=== PATIENT | male | born 1955 | race Caucasian/White ===

== ENCOUNTER 2020-01-17 17:10 | Inpatient (IN) ==
[2020-01-17] MEDS: Ipratropium/Albuterol Neb 3 ML IH SCH (21:34)
[2020-01-17] MEDS: Budesonide/Formoterol 160/4.5 1 PUFF INH IH SCH (21:35)
[2020-01-17] MEDS: hydrOXYzine pamoate 25 MG CAPSULE PO PRN (22:18)
[2020-01-17] MEDS: tiZANidine 4 MG TABLET PO PRN (22:19)
[2020-01-18] MEDS: *HR* OxyCODONE Immed Rel 5 MG TABLET PO PRN (00:37)
[2020-01-18] MEDS: Ipratropium/Albuterol Neb 3 ML IH SCH ×4 (04:00→21:22)
[2020-01-18 06:23] LABS: Basophils % 0.1 %; Eosinophils # 0.1 K/mcL (0.0-0.6); Eosinophils % 1.3 %; Hematocrit 34.1 % (37.5-50.1); Immature Granulocytes % 0.6 % (0-4); Lymphocytes % 13.8 %; Mean Corpuscular HGB Conc 32.3 g/dL (31.6-35.5); Mean Corpuscular Hemoglobin 24.9 pg (28.0-33.3); Mean Corpuscular Volume 77.1 fL (83.0-100.0); Mean Platelet Volume 8.7 fL (9.4-12.4); Monocytes # 0.7 K/mcL (0.0-1.3); Monocytes % 10.4 %; Neutrophils # 5.1 K/mcL (1.6-8.9); Platelet Count 233 K/mcL (140-400); Red Blood Count 4.42 M/mcL (4.19-5.50); Red Cell Distribution Width 11.6 % (11.5-14.5); Segmented Neutrophils % 73.8 %; White Blood Count 6.9 K/mcL (4.3-11.1)
[2020-01-18 06:40] LABS: BUN/Creatinine Ratio 34 (6-26); Blood Urea Nitrogen 14 mg/dL (8-23); Calcium 8.1 mg/dL (8.6-10.3); Carbon Dioxide 35 mEq/L (23-29); Chloride 95 mEq/L (98-107); Glucose 90 mg/dL (70-105); Osmolality,Calculated 280 (280-300); Potassium 3.6 mEq/L (3.5-5.1); Sodium 135 mEq/L (136-145); eGFR For African Americans > 60 (> 60); eGFR For Non-African Americans > 60 (> 60)
[2020-01-18] MEDS: Loratadine 10 MG TABLET PO SCH (08:27)
[2020-01-18] MEDS: Cefdinir 300 MG CAPSULE PO SCH ×2 (08:27→19:59)
[2020-01-18] MEDS: DilTIAZem CD (24hr) 120 MG CAP.ER.24H PO SCH (08:28)
[2020-01-18] MEDS: predniSONE 20 MG TABLET PO SCH (08:28)
[2020-01-18] MEDS: Aspirin 81 MG TAB.CHEW PO SCH (08:28)
[2020-01-18] MEDS: Azithromycin 250 MG TABLET PO SCH (08:28)
[2020-01-18] MEDS: Fluticasone Propionate Nasal 50 MCG/SPRAY BOTTLE NS SCH (08:38)
[2020-01-18] MEDS ORDERED: NON-FORMULARY MEDICATION 1 EACH EACH (Pantoprazole Sodium 40 MG) PO SCH (09:00)
[2020-01-18] MEDS: Budesonide/Formoterol 160/4.5 1 PUFF INH IH SCH ×2 (10:38→21:23)
[2020-01-18] MEDS: tiZANidine 4 MG TABLET PO PRN (19:59)
[2020-01-18] MEDS: hydrOXYzine pamoate 25 MG CAPSULE PO PRN (19:59)
[2020-01-19] MEDS: tiZANidine 4 MG TABLET PO PRN ×3 (02:24→20:03)
[2020-01-19] MEDS: hydrOXYzine pamoate 25 MG CAPSULE PO PRN ×3 (02:24→20:03)
[2020-01-19] MEDS: Ipratropium/Albuterol Neb 3 ML IH SCH ×4 (04:59→21:23)
[2020-01-19 08:17] LABS: Basophils % 0.1 %; Eosinophils # 0.2 K/mcL (0.0-0.6); Eosinophils % 2.2 %; Hematocrit 35.8 % (37.5-50.1); Hemoglobin 11.5 g/dL (12.9-16.9); Immature Granulocytes % 1.2 % (0-4); Lymphocytes % 12.9 %; Mean Corpuscular HGB Conc 32.1 g/dL (31.6-35.5); Mean Corpuscular Hemoglobin 24.7 pg (28.0-33.3); Mean Platelet Volume 8.9 fL (9.4-12.4); Monocytes # 0.7 K/mcL (0.0-1.3); Monocytes % 9.4 %; Neutrophils # 5.7 K/mcL (1.6-8.9); Platelet Count 255 K/mcL (140-400); Red Blood Count 4.65 M/mcL (4.19-5.50); Red Cell Distribution Width 11.7 % (11.5-14.5); Segmented Neutrophils % 74.2 %; White Blood Count 7.7 K/mcL (4.3-11.1)
[2020-01-19 08:31] LABS: Alanine Aminotransferase 10 Units/L (7-52); Albumin 3.2 g/dL (3.5-5.7); Albumin/Globulin Ratio 1.7 (1.1-2.2); Alkaline Phosphatase 71 Units/L (34-104); Aspartate Amino Transferase 9 Units/L (13-39); BUN/Creatinine Ratio 33 (6-26); Bilirubin,Total 0.6 mg/dL (0.3-1.0); Blood Urea Nitrogen 15 mg/dL (8-23); Calcium 8.2 mg/dL (8.6-10.3); Carbon Dioxide 35 mEq/L (23-29); Chloride 96 mEq/L (98-107); Globulin 1.9 g/dL (2.4-3.5); Glucose 86 mg/dL (70-105); Osmolality,Calculated 280 (280-300); Potassium 3.6 mEq/L (3.5-5.1); Sodium 135 mEq/L (136-145); Total Protein 5.1 g/dL (6.4-8.9); eGFR For African Americans > 60 (> 60); eGFR For Non-African Americans > 60 (> 60)
[2020-01-19] MEDS: DilTIAZem CD (24hr) 120 MG CAP.ER.24H PO SCH (09:31)
[2020-01-19] MEDS: predniSONE 20 MG TABLET PO SCH (09:31)
[2020-01-19] MEDS: Azithromycin 250 MG TABLET PO SCH (09:31)
[2020-01-19] MEDS: Cefdinir 300 MG CAPSULE PO SCH ×2 (09:32→20:03)
[2020-01-19] MEDS: Aspirin 81 MG TAB.CHEW PO SCH (09:32)
[2020-01-19] MEDS: Loratadine 10 MG TABLET PO SCH (09:32)
[2020-01-19] MEDS: Budesonide/Formoterol 160/4.5 1 PUFF INH IH SCH ×2 (10:49→21:23)
[2020-01-19] MEDS: Fluticasone Propionate Nasal 50 MCG/SPRAY BOTTLE NS SCH (11:21)
[2020-01-19] MEDS: *HR* OxyCODONE Immed Rel 5 MG TABLET PO PRN (20:12)
[2020-01-20] MEDS: hydrOXYzine pamoate 25 MG CAPSULE PO PRN ×2 (02:18→08:38)
[2020-01-20] MEDS: Ipratropium/Albuterol Neb 3 ML IH SCH ×4 (04:01→22:22)
[2020-01-20] MEDS: Azithromycin 250 MG TABLET PO SCH (08:38)
[2020-01-20] MEDS: predniSONE 20 MG TABLET PO SCH (08:38)
[2020-01-20] MEDS: Cefdinir 300 MG CAPSULE PO SCH ×2 (08:38→21:32)
[2020-01-20] MEDS: tiZANidine 4 MG TABLET PO PRN ×3 (08:38→21:32)
[2020-01-20] MEDS: Fluticasone Propionate Nasal 50 MCG/SPRAY BOTTLE NS SCH (08:38)
[2020-01-20] MEDS: Loratadine 10 MG TABLET PO SCH (08:38)
[2020-01-20] MEDS: Aspirin 81 MG TAB.CHEW PO SCH (08:38)
[2020-01-20] MEDS: DilTIAZem CD (24hr) 120 MG CAP.ER.24H PO SCH (08:38)
[2020-01-20] MEDS: Budesonide/Formoterol 160/4.5 1 PUFF INH IH SCH ×2 (10:41→22:22)
[2020-01-20] MEDS: hydrOXYzine pamoate 25 MG CAPSULE PO SCH ×2 (15:26→21:32)
[2020-01-21] MEDS: hydrOXYzine pamoate 25 MG CAPSULE PO SCH ×4 (04:09→22:20)
[2020-01-21] MEDS: tiZANidine 4 MG TABLET PO PRN ×2 (04:10→22:20)
[2020-01-21] MEDS: Ipratropium/Albuterol Neb 3 ML IH SCH ×4 (04:17→21:22)
[2020-01-21] MEDS: Azithromycin 250 MG TABLET PO SCH (08:36)
[2020-01-21] MEDS: predniSONE 20 MG TABLET PO SCH (08:37)
[2020-01-21] MEDS: Loratadine 10 MG TABLET PO SCH (08:37)
[2020-01-21] MEDS: Cefdinir 300 MG CAPSULE PO SCH ×2 (08:37→23:15)
[2020-01-21] MEDS: Aspirin 81 MG TAB.CHEW PO SCH (08:37)
[2020-01-21] MEDS: DilTIAZem CD (24hr) 120 MG CAP.ER.24H PO SCH (08:37)
[2020-01-21] MEDS: Fluticasone Propionate Nasal 50 MCG/SPRAY BOTTLE NS SCH (08:47)
[2020-01-21] MEDS: Budesonide/Formoterol 160/4.5 1 PUFF INH IH SCH ×2 (09:51→21:23)
[2020-01-21] MEDS: *HR* OxyCODONE Immed Rel 5 MG TABLET PO PRN (22:20)
[2020-01-22] MEDS: Ipratropium/Albuterol Neb 3 ML IH SCH ×4 (04:05→22:29)
[2020-01-22] MEDS: hydrOXYzine pamoate 25 MG CAPSULE PO SCH ×4 (04:24→21:18)
[2020-01-22] MEDS: predniSONE 20 MG TABLET PO SCH (09:04)
[2020-01-22] MEDS: DilTIAZem CD (24hr) 120 MG CAP.ER.24H PO SCH (09:04)
[2020-01-22] MEDS: Cefdinir 300 MG CAPSULE PO SCH ×2 (09:04→21:18)
[2020-01-22] MEDS: Aspirin 81 MG TAB.CHEW PO SCH (09:04)
[2020-01-22] MEDS: Loratadine 10 MG TABLET PO SCH (09:04)
[2020-01-22] MEDS: Fluticasone Propionate Nasal 50 MCG/SPRAY BOTTLE NS SCH (09:10)
[2020-01-22] MEDS: Budesonide/Formoterol 160/4.5 1 PUFF INH IH SCH ×2 (09:15→22:29)
[2020-01-22] MEDS: tiZANidine 4 MG TABLET PO PRN ×2 (11:17→21:19)
[2020-01-23] MEDS: Ipratropium/Albuterol Neb 3 ML IH SCH ×4 (04:23→21:16)
[2020-01-23] MEDS: hydrOXYzine pamoate 25 MG CAPSULE PO SCH ×4 (05:14→22:03)
[2020-01-23] MEDS: Aspirin 81 MG TAB.CHEW PO SCH (08:46)
[2020-01-23] MEDS: DilTIAZem CD (24hr) 120 MG CAP.ER.24H PO SCH (08:46)
[2020-01-23] MEDS: tiZANidine 4 MG TABLET PO PRN ×2 (08:47→16:32)
[2020-01-23] MEDS: predniSONE 10 MG TABLET PO SCH (08:47)
[2020-01-23] MEDS: Loratadine 10 MG TABLET PO SCH (08:47)
[2020-01-23] MEDS: Fluticasone Propionate Nasal 50 MCG/SPRAY BOTTLE NS SCH (08:53)
[2020-01-23] MEDS: Budesonide/Formoterol 160/4.5 1 PUFF INH IH SCH ×2 (09:55→21:15)
[2020-01-24] MEDS: tiZANidine 4 MG TABLET PO PRN ×2 (00:16→23:35)
[2020-01-24] MEDS: hydrOXYzine pamoate 25 MG CAPSULE PO SCH ×4 (04:00→23:35)
[2020-01-24] MEDS: Ipratropium/Albuterol Neb 3 ML IH SCH ×4 (04:19→21:33)
[2020-01-24] MEDS: Aspirin 81 MG TAB.CHEW PO SCH (08:28)
[2020-01-24] MEDS: DilTIAZem CD (24hr) 120 MG CAP.ER.24H PO SCH (08:29)
[2020-01-24] MEDS: predniSONE 10 MG TABLET PO SCH (08:29)
[2020-01-24] MEDS: Loratadine 10 MG TABLET PO SCH (08:29)
[2020-01-24] MEDS: Fluticasone Propionate Nasal 50 MCG/SPRAY BOTTLE NS SCH (08:32)
[2020-01-24] MEDS: Budesonide/Formoterol 160/4.5 1 PUFF INH IH SCH ×2 (10:37→21:33)
[2020-01-24] MEDS: Nystatin Cream 15 GM TUBE TP SCH ×2 (18:21→20:15)
[2020-01-25] MEDS: Ipratropium/Albuterol Neb 3 ML IH SCH ×4 (04:18→21:55)
[2020-01-25] MEDS: hydrOXYzine pamoate 25 MG CAPSULE PO SCH ×4 (05:15→22:02)
[2020-01-25] MEDS: Aspirin 81 MG TAB.CHEW PO SCH (09:02)
[2020-01-25] MEDS: Fluticasone Propionate Nasal 50 MCG/SPRAY BOTTLE NS SCH (09:02)
[2020-01-25] MEDS: tiZANidine 4 MG TABLET PO PRN ×2 (09:02→16:26)
[2020-01-25] MEDS: DilTIAZem CD (24hr) 120 MG CAP.ER.24H PO SCH (09:02)
[2020-01-25] MEDS: Loratadine 10 MG TABLET PO SCH (09:02)
[2020-01-25] MEDS: predniSONE 10 MG TABLET PO SCH (09:02)
[2020-01-25] MEDS: Nystatin Cream 15 GM TUBE TP SCH ×2 (09:09→22:01)
[2020-01-25] MEDS: Budesonide/Formoterol 160/4.5 1 PUFF INH IH SCH ×2 (09:34→21:54)
[2020-01-26] MEDS: tiZANidine 4 MG TABLET PO PRN ×3 (00:54→16:14)
[2020-01-26] MEDS: *HR* OxyCODONE Immed Rel 5 MG TABLET PO PRN (00:55)
[2020-01-26] MEDS: hydrOXYzine pamoate 25 MG CAPSULE PO SCH ×4 (03:54→21:53)
[2020-01-26] MEDS: Ipratropium/Albuterol Neb 3 ML IH SCH ×4 (04:53→22:27)
[2020-01-26] MEDS: Fluticasone Propionate Nasal 50 MCG/SPRAY BOTTLE NS SCH (08:44)
[2020-01-26] MEDS: Loratadine 10 MG TABLET PO SCH (08:45)
[2020-01-26] MEDS: Nystatin Cream 15 GM TUBE TP SCH ×2 (08:45→21:56)
[2020-01-26] MEDS: predniSONE 10 MG TABLET PO SCH (08:45)
[2020-01-26] MEDS: Aspirin 81 MG TAB.CHEW PO SCH (08:46)
[2020-01-26] MEDS: DilTIAZem CD (24hr) 120 MG CAP.ER.24H PO SCH (08:54)
[2020-01-26] MEDS ORDERED: methylPREDNISolone 125 MG/2 ML VIAL IVP ONE (08:55)
[2020-01-26] MEDS: Budesonide/Formoterol 160/4.5 1 PUFF INH IH SCH ×2 (10:00→22:28)
[2020-01-27] MEDS: MethylPREDNISolone 40 MG/ML VIAL IVP SCH ×3 (00:11→18:14)
[2020-01-27] MEDS: tiZANidine 4 MG TABLET PO PRN ×3 (00:12→16:12)
[2020-01-27] MEDS: hydrOXYzine pamoate 25 MG CAPSULE PO SCH ×4 (04:11→22:01)
[2020-01-27] MEDS: Ipratropium/Albuterol Neb 3 ML IH SCH ×4 (04:18→22:20)
[2020-01-27] MEDS: Aspirin 81 MG TAB.CHEW PO SCH (08:28)
[2020-01-27] MEDS: Fluticasone Propionate Nasal 50 MCG/SPRAY BOTTLE NS SCH (08:28)
[2020-01-27] MEDS: DilTIAZem CD (24hr) 120 MG CAP.ER.24H PO SCH (08:28)
[2020-01-27] MEDS: Loratadine 10 MG TABLET PO SCH (08:29)
[2020-01-27] MEDS: Nystatin Cream 15 GM TUBE TP SCH ×2 (08:35→22:03)
[2020-01-27] MEDS: Budesonide/Formoterol 160/4.5 1 PUFF INH IH SCH ×2 (10:31→22:22)
[2020-01-27] MEDS: Famotidine 20 MG TABLET PO SCH ×2 (14:19→22:01)
[2020-01-28] MEDS: tiZANidine 4 MG TABLET PO PRN ×3 (01:08→17:03)
[2020-01-28] MEDS: Ipratropium/Albuterol Neb 3 ML IH SCH ×4 (04:18→21:16)
[2020-01-28] MEDS: hydrOXYzine pamoate 25 MG CAPSULE PO SCH ×4 (04:31→22:50)
[2020-01-28] MEDS: MethylPREDNISolone 40 MG/ML VIAL IVP SCH ×2 (06:45→17:03)
[2020-01-28] MEDS: Fluticasone Propionate Nasal 50 MCG/SPRAY BOTTLE NS SCH (08:59)
[2020-01-28] MEDS: DilTIAZem CD (24hr) 120 MG CAP.ER.24H PO SCH (08:59)
[2020-01-28] MEDS: Nystatin Cream 15 GM TUBE TP SCH ×3 (09:00→21:27)
[2020-01-28] MEDS: Loratadine 10 MG TABLET PO SCH (09:00)
[2020-01-28] MEDS: Aspirin 81 MG TAB.CHEW PO SCH (09:00)
[2020-01-28] MEDS: Famotidine 20 MG TABLET PO SCH ×2 (09:00→21:24)
[2020-01-28] MEDS: Budesonide/Formoterol 160/4.5 1 PUFF INH IH SCH ×2 (10:42→21:16)
[2020-01-29] MEDS: tiZANidine 4 MG TABLET PO PRN ×4 (01:04→23:57)
[2020-01-29] MEDS: Ipratropium/Albuterol Neb 3 ML IH SCH ×4 (04:19→21:18)
[2020-01-29] MEDS: MethylPREDNISolone 40 MG/ML VIAL IVP SCH (04:50)
[2020-01-29] MEDS: hydrOXYzine pamoate 25 MG CAPSULE PO SCH ×4 (04:51→22:10)
[2020-01-29] MEDS: Aspirin 81 MG TAB.CHEW PO SCH (08:58)
[2020-01-29] MEDS: DilTIAZem CD (24hr) 120 MG CAP.ER.24H PO SCH (08:58)
[2020-01-29] MEDS: Famotidine 20 MG TABLET PO SCH (08:58)
[2020-01-29] MEDS: Loratadine 10 MG TABLET PO SCH (08:59)
[2020-01-29] MEDS: Nystatin Cream 15 GM TUBE TP SCH ×2 (08:59→21:10)
[2020-01-29] MEDS: Fluticasone Propionate Nasal 50 MCG/SPRAY BOTTLE NS SCH (09:02)
[2020-01-29] MEDS: Budesonide/Formoterol 160/4.5 1 PUFF INH IH SCH ×2 (10:04→21:18)
[2020-01-30] MEDS: hydrOXYzine pamoate 25 MG CAPSULE PO SCH ×2 (03:54→09:23)
[2020-01-30] MEDS: Ipratropium/Albuterol Neb 3 ML IH SCH ×2 (04:38→10:28)
[2020-01-30 06:33] VITALS: BP 149/92
[2020-01-30] MEDS ORDERED: MethylPREDNISolone 40 MG/ML VIAL IVP SCH (09:00)
[2020-01-30] MEDS: Aspirin 81 MG TAB.CHEW PO SCH (09:22)
[2020-01-30] MEDS: DilTIAZem CD (24hr) 120 MG CAP.ER.24H PO SCH (09:24)
[2020-01-30] MEDS: Loratadine 10 MG TABLET PO SCH (09:25)
[2020-01-30] MEDS: Nystatin Cream 15 GM TUBE TP SCH (09:26)
[2020-01-30] MEDS: Fluticasone Propionate Nasal 50 MCG/SPRAY BOTTLE NS SCH (09:26)
[2020-01-30] MEDS: Budesonide/Formoterol 160/4.5 1 PUFF INH IH SCH (10:28)
== END 2020-01-30 11:40 | disposition home health service (06) | DRG 193 ==
LOC: INPPIK 18:58
PROVIDERS: ADMIT Family Medicine; ATTEND Family Medicine